=== PATIENT | male | born 1985 | race American Indian/Alaskan Native ===

== ENCOUNTER 2016-10-06 19:04 | Emergency (ER) | payer MEDICAID ==
[2016-10-06] MEDS ORDERED: ATIVAN ONE (20:10)
[2016-10-06] MEDS ORDERED: ATIVAN IM ONE (20:13)
--- NOTE | 2016-10-06 20:19 | Emergency Department Report ---
HPI - General Time Seen by Provider: 10/06/16 19:53 - HPI HPI: Room 10 The patient is a 31-year-old male presenting with a chief complaint of agitation. Patient has a history apparently schizophrenia addition to hydrocephalus requiring CAREER DEVELOPMENT COORDINATOR/TEACHER shunt. The mother is not present at the time but is en route to the ED. The patient states the patient was reported to have had increased agitation condition is normally quiet at baseline. Platelet the patient has been pacing and cursing. The patient went to [facility] and [place] 1 month ago for the same and medications were adjusted. Location: Mental state Duration: [see above] Quality: Agitation Severity: Moderate Modifying factors: [see above] Context: [see above] Mode of transportation: [not driving] ED Past Medical Hx - Past Medical History Hx Hypertension: Yes Hx Seizures: Yes Hx Psychiatric Treatment: Yes (Paranoid Schizophrenia) Additional medical history: Hydrocephaly - Surgical History Additional Surgical History: Brain Surgery X 5, CAREER DEVELOPMENT COORDINATOR/TEACHER shunt - Family History Family history: no significant - Social History Smoking Status: Never Smoker Substance Use Type: None - Medications Home Medications: Home Medications Medication Instructions Recorded Confirmed Last Taken Type Colace CAP 200 mg PO BID 08/15/16 08/15/16 Unknown History Cyanocobalamin 1,000 mcg IM Q30D 08/15/16 08/15/16 Unknown History Depakote ER 1,000 mg PO HS 08/15/16 08/15/16 Unknown History Metoprolol SUCCINATE ER TAB 25 mg PO BID 08/15/16 08/15/16 Unknown History Perphenazine 4 mg PO BID 08/15/16 08/15/16 Unknown History Phenytoin 100 mg PO BID 08/15/16 08/15/16 Unknown History Polyethylene Glycol 3350 17 gm PO DAILY 08/15/16 08/15/16 Unknown History QUEtiapine 600 mg PO HS 08/15/16 08/15/16 Unknown History clonazePAM 1 mg PO TID 08/15/16 08/15/16 Unknown History ED Review of Systems ROS: Stated complaint: MENTAL EVALUATION Other details as noted in HPI Comment: Unobtainable due to pts medical conditions Physical Exam - Physical Exam Vital Signs: Vital Signs 10/06/16 10/06/16 19:28 19:37 Temperature 98.4 F 98.2 F Pulse Rate 99 H 99 H Respiratory 20 20 Rate Blood Pressure 149/88 Blood Pressure 149/88 [Right] O2 Sat by Pulse 98 99 Oximetry Physical Exam: GENERAL: The patient is well-developed well-nourished male lying on stretcher with occasional outbursts and nonsensical statements HEENT: Normocephalic. Atraumatic. Strabismus. Patient has moist mucous membranes. NECK: Supple. Trachea midline CHEST/LUNGS: Clear to auscultation. There is no respiratory distress noted. HEART/CARDIOVASCULAR: Regular. There is no tachycardia. There is no gallop rub or murmur. ABDOMEN: Abdomen is soft, nontender. Patient has normal bowel sounds. There is no abdominal distention. SKIN: There is no rash. There is no edema. There is no diaphoresis. NEURO: The patient is awake, but does not appear oriented. The patient is not fully cooperative with exam and history. MUSCULOSKELETAL: There is no evidence of acute injury. ED Course Vital Signs 10/06/16 10/06/16 19:28 19:37 Temperature 98.4 F 98.2 F Pulse Rate 99 H 99 H Respiratory 20 20 Rate Blood Pressure 149/88 Blood Pressure 149/88 [Right] O2 Sat by Pulse 98 99 Oximetry ED Medical Decision Making - Lab Data Result diagrams: 10/06/16 20:12 10/06/16 20:12 Laboratory Tests 10/06/16 10/06/16 10/06/16 20:12 20:12 20:19 WBC 8.4 RBC 4.69 Hgb 13.1 Hct 38.9 MCV 83 L MCH 28 MCHC 34 RDW 14.8 Plt Count 266 Sodium 137 Potassium 3.9 Chloride 99.2 Carbon Dioxide 23 Anion Gap 19 BUN 9 Creatinine 0.7 L Estimated GFR > 60 BUN/Creatinine Ratio 12.85 Glucose 85 Calcium 8.9 TSH 1.630 Free T4 1.16 Phenytoin Valproic Acid 10/06/16 20:19 WBC RBC Hgb Hct MCV MCH MCHC RDW Plt Count Sodium Potassium Chloride Carbon Dioxide Anion Gap BUN Creatinine Estimated GFR BUN/Creatinine Ratio Glucose Calcium TSH Free T4 Phenytoin 1.3 L Valproic Acid < 2.8 L - Radiology Data Radiology results: report reviewed (CT head), image reviewed (CT head) CT head (read by radiologist)-no gross acute intracranial abnormality. Right frontal proximal shunt catheter is in place. Ventricle system is decompressed. Diffuse dural thickening related to chronic shunting. - Differential Diagnosis schizophrenia, CAREER DEVELOPMENT COORDINATOR/TEACHER shunt malfunction Critical care attestation.: If time is entered above; I have spent that time in minutes in the direct care of this critically ill patient, excluding procedure time. ED Disposition Clinical Impression: Schizophrenia Disposition: DC/TX PSY HOSP/PSY UNIT Is pt being admited?: No Does the pt Need Aspirin: No Condition: Fair Referrals: PRIMARY CARE,MD [Primary Care Provider] - 3-5 Days Time of Disposition: 22:35 (awaiting acceptance)
[2016-10-06 20:28] LABS: Hematocrit 38.9 % (35.5-45.6); Hemoglobin 13.1 gm/dl (11.8-15.2); Mean Corpuscular HGB Conc 34 % (32-34); Mean Corpuscular Hemoglobin 28 pg (28-32); Mean Corpuscular Volume 83 fl (84-94); Platelet Count 266 K/mm3 (140-440); Red Blood Count 4.69 M/mm3 (3.65-5.03); Red Cell Distribution Width 14.8 % (13.2-15.2); White Blood Count 8.4 K/mm3 (4.5-11.0)
[2016-10-06 20:50] LABS: BUN/Creatinine Ratio 12.85; Blood Urea Nitrogen 9 mg/dL (9-20); Calcium 8.9 mg/dL (8.4-10.2); Carbon Dioxide 23 mmol/L (22-30); Chloride 99.2 mmol/L (98-107); Glucose 85 mg/dL (75-100); Potassium 3.9 mmol/L (3.6-5.0); Sodium 137 mmol/L (137-145)
[2016-10-06 20:53] LABS: Anion Gap 19 mmol/L
[2016-10-06 20:53] LABS: Valproate < 2.8 ug/mL (50-100)
--- NOTE | 2016-10-06 21:13 | Cat Scan Report ---
FINAL REPORT EXAM: CT HEAD/BRAIN WO CON HISTORY: altered mental status COMPARISON: None available. TECHNIQUE: Contiguous axial images were obtained. FINDINGS: No acute intracranial hemorrhage or midline shift. There is a right frontal approach shunt catheter in place with the distal tip terminating at the superior margin right lateral ventricle anteriorly. Ventricular system is decompressed. There is diffuse thinning of the corpus callosum. Mild volume loss advanced for patient age. Diffuse dural thickening along the calvarium likely relating to chronic shunting. Basal cisterns are patent. Calcification within the midbrain measuring 9 x 5 millimeters. This is nonspecific. This could relate to sequelae of prior hemorrhage or inflammation. Cavernous malformation could have a similar appearance. Focal volume loss at the posterior superior margin right temporal lobe and inferior margin parietal lobe may relate to sequelae of prior ischemia. Otherwise, ferro-white differentiation maintained. Prominent perivascular space within the inferior basal ganglia. Diffuse hyperostosis of the calvarium. Under pneumatization of the mastoid air cells. Visualized paranasal sinuses are clear. Visualized orbits are grossly unremarkable. IMPRESSION: No gross acute intracranial abnormality. Right frontal approach shunt catheter is in place. Ventricular system is decompressed. Diffuse dural thickening related to chronic shunting. Volume loss advanced for patient age. Diffuse thinning of the corpus callosum which may be on a developmental basis. Focal volume loss the right temporal and parietal lobe may relate to sequelae of prior ischemia. Calcification midbrain measuring 9 x 5 millimeters which may relate to sequelae of prior hemorrhage or infection. Cavernous malformation could have a similar appearance.
[2016-10-07 04:46] LABS: Urine Drugs of Abuse Note Disclamer
[2016-10-07 04:53] LABS: Bilirubin,Urine NEG (Negative); Blood,Urine NEG (Negative); Ketones,Urine NEG (Negative); Leukocyte Esterase,Urine NEG (Negative); Mucus,Urine FEW /HPF; Nitrite,Urine NEG (Negative); Protein,Urine <15 mg/dL mg/dL (Negative); Urobilinogen,Urine < 2.0 mg/dL (<2.0)
[2016-10-07] MEDS ORDERED: VISTARIL PO PRN (13:55)
[2016-10-07] MEDS: KEPPRA PO SCH ×2 (14:40→22:23)
[2016-10-07] MEDS: LOPRESSOR PO SCH ×2 (14:40→22:23)
--- NOTE | 2016-10-07 22:21 | Emergency Department Report ---
Blank Doc - Documentation Documentation: Nursing notes and vital signs improved. Patient was tachycardic earlier today but heart rate has since improved without intervention. Patient remains calm and cooperative in ED. Awaiting placement.
[2016-10-08] MEDS ORDERED: NON-FORMULARY (Quetiapine Fumarate [Seroquel] 50 MG) PO SCH (10:00)
[2016-10-08] MEDS: KEPPRA PO SCH ×2 (10:16→22:25)
[2016-10-08] MEDS: COLACE PO SCH (10:16)
[2016-10-08] MEDS: LOPRESSOR PO SCH ×2 (10:16→22:25)
--- NOTE | 2016-10-08 16:57 | Emergency Department Report ---
Blank Doc - Documentation Documentation: Vital Signs - 24 hr 10/07/16 10/07/16 10/08/16 21:47 22:23 10:16 Temperature Pulse Rate 89 89 80 Respiratory 20 Rate Blood Pressure 123/89 107/71 Blood Pressure 123/89 [Right] O2 Sat by Pulse 98 Oximetry 10/08/16 10/08/16 10/08/16 10:20 10:22 12:12 Temperature 97.7 F 98.0 F Pulse Rate 80 80 Respiratory 18 18 18 Rate Blood Pressure Blood Pressure 107/71 102/61 [Right] O2 Sat by Pulse 99 99 100 Oximetry 10/08/16 13:29 Temperature Pulse Rate 101 H Respiratory 16 Rate Blood Pressure Blood Pressure 109/66 [Right] O2 Sat by Pulse 100 Oximetry VS reviewed. No events reported. Awaiting placement
[2016-10-09] MEDS: COLACE PO SCH (10:13)
[2016-10-09] MEDS: LOPRESSOR PO SCH ×2 (10:14→23:39)
[2016-10-09] MEDS: KEPPRA PO SCH ×2 (10:14→23:39)
--- NOTE | 2016-10-09 15:29 | Emergency Department Report ---
Blank Doc - Documentation Documentation: Vital signs reviewed. Patient has been resting quietly requiring no intervention. Patient continues to await placement.
[2016-10-10] MEDS: COLACE PO SCH (09:43)
[2016-10-10] MEDS: LOPRESSOR PO SCH ×2 (09:44→22:17)
[2016-10-10] MEDS: KEPPRA PO SCH ×2 (09:44→22:17)
--- NOTE | 2016-10-11 05:44 | Event Note ---
Date: 10/11/16 no recent events. vitals noted. awaits psychiatric placement Vital Signs 10/06/16 10/06/16 10/07/16 19:28 19:37 13:50 Temperature 98.4 F 98.2 F 98 F Pulse Rate 99 H 99 H 114 H Respiratory 20 20 16 Rate Blood Pressure 149/88 Blood Pressure 149/88 167/89 [Right] O2 Sat by Pulse 98 99 100 Oximetry 10/07/16 10/07/16 10/07/16 14:40 21:47 22:23 Temperature Pulse Rate 114 H 89 89 Respiratory 20 Rate Blood Pressure 167/89 123/89 Blood Pressure 123/89 [Right] O2 Sat by Pulse 98 Oximetry 10/08/16 10/08/16 10/08/16 10:16 10:20 10:22 Temperature 97.7 F Pulse Rate 80 80 Respiratory 18 18 Rate Blood Pressure 107/71 Blood Pressure 107/71 [Right] O2 Sat by Pulse 99 99 Oximetry 10/08/16 10/08/16 10/08/16 12:12 13:29 22:25 Temperature 98.0 F Pulse Rate 80 101 H 92 H Respiratory 18 16 Rate Blood Pressure 135/93 Blood Pressure 102/61 109/66 [Right] O2 Sat by Pulse 100 100 Oximetry 10/08/16 10/09/16 10/09/16 22:42 03:01 07:31 Temperature Pulse Rate 92 H 78 Respiratory 16 14 15 Rate Blood Pressure Blood Pressure 135/93 122/81 [Right] O2 Sat by Pulse 97 99 Oximetry 10/09/16 10/09/16 10/09/16 07:33 10:00 19:34 Temperature 98.1 F Pulse Rate 78 85 Respiratory 15 15 18 Rate Blood Pressure Blood Pressure 122/81 112/72 [Right] O2 Sat by Pulse 99 99 99 Oximetry 10/09/16 10/10/16 10/10/16 23:39 07:30 08:00 Temperature 98.3 F Pulse Rate 69 97 H Respiratory 18 Rate Blood Pressure 106/75 Blood Pressure 116/79 [Right] O2 Sat by Pulse 97 97 Oximetry 10/10/16 10/10/16 10/10/16 09:44 19:36 22:00 Temperature 98.1 F Pulse Rate 97 H 85 Respiratory 20 18 Rate Blood Pressure 116/79 Blood Pressure 130/75 [Right] O2 Sat by Pulse 99 Oximetry 10/10/16 22:17 Temperature Pulse Rate 85 Respiratory Rate Blood Pressure 130/75 Blood Pressure [Right] O2 Sat by Pulse Oximetry
[2016-10-11] MEDS: LOPRESSOR PO SCH ×2 (10:58→22:04)
[2016-10-11] MEDS: COLACE PO SCH (10:58)
[2016-10-11] MEDS: KEPPRA PO SCH ×2 (10:58→22:04)
--- NOTE | 2016-10-12 05:55 | Event Note ---
Date: 10/12/16 Vital signs reviewed. Patient awaits psychiatric placement. Vital Signs 10/06/16 10/06/16 10/07/16 19:27 19:37 13:50 Temperature 98.4 F 98.2 F 98 F Pulse Rate 99 H 99 H 114 H Respiratory 20 20 16 Rate Blood Pressure 149/88 Blood Pressure 149/88 167/89 [Right] O2 Sat by Pulse 98 99 100 Oximetry 10/07/16 10/07/16 10/07/16 14:40 21:47 22:23 Temperature Pulse Rate 114 H 89 89 Respiratory 20 Rate Blood Pressure 167/89 123/89 Blood Pressure 123/89 [Right] O2 Sat by Pulse 98 Oximetry 10/08/16 10/08/16 10/08/16 10:16 10:20 10:22 Temperature 97.7 F Pulse Rate 80 80 Respiratory 18 18 Rate Blood Pressure 107/71 Blood Pressure 107/71 [Right] O2 Sat by Pulse 99 99 Oximetry 10/08/16 10/08/16 10/08/16 12:12 13:29 22:25 Temperature 98.0 F Pulse Rate 80 101 H 92 H Respiratory 18 16 Rate Blood Pressure 135/93 Blood Pressure 102/61 109/66 [Right] O2 Sat by Pulse 100 100 Oximetry 10/08/16 10/09/16 10/09/16 22:42 03:01 07:31 Temperature Pulse Rate 92 H 78 Respiratory 16 14 15 Rate Blood Pressure Blood Pressure 135/93 122/81 [Right] O2 Sat by Pulse 97 99 Oximetry 10/09/16 10/09/16 10/09/16 07:33 10:00 19:34 Temperature 98.1 F Pulse Rate 78 85 Respiratory 15 15 18 Rate Blood Pressure Blood Pressure 122/81 112/72 [Right] O2 Sat by Pulse 99 99 99 Oximetry 10/09/16 10/10/16 10/10/16 23:39 07:30 08:00 Temperature 98.3 F Pulse Rate 69 97 H Respiratory 18 Rate Blood Pressure 106/75 Blood Pressure 116/79 [Right] O2 Sat by Pulse 97 97 Oximetry 10/10/16 10/10/16 10/10/16 09:44 19:36 22:00 Temperature 98.1 F Pulse Rate 97 H 85 Respiratory 20 18 Rate Blood Pressure 116/79 Blood Pressure 130/75 [Right] O2 Sat by Pulse 99 Oximetry 10/10/16 10/11/16 10/11/16 22:17 12:16 18:48 Temperature 97.8 F Pulse Rate 85 88 Respiratory 18 16 Rate Blood Pressure 130/75 Blood Pressure 130/74 [Right] O2 Sat by Pulse 10 L Oximetry 10/11/16 10/11/16 20:02 22:04 Temperature 98.6 F Pulse Rate 88 88 Respiratory 16 Rate Blood Pressure 142/89 Blood Pressure 142/89 [Right] O2 Sat by Pulse 96 Oximetry
[2016-10-12] MEDS: COLACE PO SCH (10:25)
[2016-10-12] MEDS: KEPPRA PO SCH ×2 (10:25→23:17)
[2016-10-12] MEDS: LOPRESSOR PO SCH ×2 (10:53→23:15)
[2016-10-13] MEDS: KEPPRA PO SCH ×2 (09:49→22:27)
[2016-10-13] MEDS: LOPRESSOR PO SCH ×2 (09:49→22:27)
[2016-10-13] MEDS: COLACE PO SCH (09:49)
[2016-10-14] MEDS: LOPRESSOR PO SCH ×2 (10:05→21:32)
[2016-10-14] MEDS: KEPPRA PO SCH ×2 (10:05→21:32)
[2016-10-14] MEDS: COLACE PO SCH (10:05)
[2016-10-15] MEDS ORDERED: VISTARIL ONE (02:13)
[2016-10-15] MEDS ORDERED: NACL 0.9% 1000 ML 2,000 ML ONE (07:47)
[2016-10-15] MEDS: KEPPRA PO SCH ×2 (10:07→22:00)
[2016-10-15] MEDS: COLACE PO SCH (10:07)
[2016-10-15] MEDS: LOPRESSOR PO SCH ×2 (10:07→22:00)
--- NOTE | 2016-10-15 14:47 | Event Note ---
Date: 10/15/16 Vital signs reviewed. Await psychiatric placement. Vital Signs 10/06/16 10/06/16 10/07/16 19:27 19:37 13:50 Temperature 98.4 F 98.2 F 98 F Pulse Rate 99 H 99 H 114 H Respiratory 20 20 16 Rate Blood Pressure 149/88 Blood Pressure 149/88 167/89 [Right] O2 Sat by Pulse 98 99 100 Oximetry 10/07/16 10/07/16 10/07/16 14:40 21:47 22:23 Temperature Pulse Rate 114 H 89 89 Respiratory 20 Rate Blood Pressure 167/89 123/89 Blood Pressure 123/89 [Right] O2 Sat by Pulse 98 Oximetry 10/08/16 10/08/16 10/08/16 10:16 10:20 10:22 Temperature 97.7 F Pulse Rate 80 80 Respiratory 18 18 Rate Blood Pressure 107/71 Blood Pressure 107/71 [Right] O2 Sat by Pulse 99 99 Oximetry 10/08/16 10/08/16 10/08/16 12:12 13:29 22:25 Temperature 98.0 F Pulse Rate 80 101 H 92 H Respiratory 18 16 Rate Blood Pressure 135/93 Blood Pressure 102/61 109/66 [Right] O2 Sat by Pulse 100 100 Oximetry 10/08/16 10/09/16 10/09/16 22:42 03:01 07:31 Temperature Pulse Rate 92 H 78 Respiratory 16 14 15 Rate Blood Pressure Blood Pressure 135/93 122/81 [Right] O2 Sat by Pulse 97 99 Oximetry 10/09/16 10/09/16 10/09/16 07:33 10:00 19:34 Temperature 98.1 F Pulse Rate 78 85 Respiratory 15 15 18 Rate Blood Pressure Blood Pressure 122/81 112/72 [Right] O2 Sat by Pulse 99 99 99 Oximetry 10/09/16 10/10/16 10/10/16 23:39 07:30 08:00 Temperature 98.3 F Pulse Rate 69 97 H Respiratory 18 Rate Blood Pressure 106/75 Blood Pressure 116/79 [Right] O2 Sat by Pulse 97 97 Oximetry 10/10/16 10/10/16 10/10/16 09:44 19:36 22:00 Temperature 98.1 F Pulse Rate 97 H 85 Respiratory 20 18 Rate Blood Pressure 116/79 Blood Pressure 130/75 [Right] O2 Sat by Pulse 99 Oximetry 10/10/16 10/11/16 10/11/16:17 12:16 18:48 Temperature 97.8 F Pulse Rate 85 88 Respiratory 18 16 Rate Blood Pressure 130/75 Blood Pressure 130/74 [Right] O2 Sat by Pulse 10 L Oximetry 10/11/16 10/11/16 10/12/16 20:02 22:04 10:53 Temperature 98.6 F Pulse Rate 88 88 85 Respiratory 16 Rate Blood Pressure 142/89 122/72 Blood Pressure 142/89 [Right] O2 Sat by Pulse 96 Oximetry 10/12/16 10/12/16 10/13/16 10:56 22:00 08:01 Temperature 98.5 F 98.0 F 94 F L Pulse Rate 85 86 98 H Respiratory 16 18 24 Rate Blood Pressure Blood Pressure 122/72 132/81 113/70 [Right] O2 Sat by Pulse 100 98 95 Oximetry 10/13/16 10/13/16 10/13/16 08:20 09:49 22:00 Temperature 97.8 F Pulse Rate 98 H 96 H Respiratory 24 18 Rate Blood Pressure 113/75 Blood Pressure 118/80 [Right] O2 Sat by Pulse 98 97 Oximetry 10/14/16 10/14/16 10/14/16 08:58 10:00 10:05 Temperature 97.7 F Pulse Rate 136 H 136 H Respiratory 18 20 Rate Blood Pressure 120/90 Blood Pressure 120/90 [Right] O2 Sat by Pulse 97 97 Oximetry 10/14/16 10/14/16 10/15/16 11:46 22:00 08:00 Temperature 98.0 F Pulse Rate 95 H 98 H Respiratory 16 18 18 Rate Blood Pressure Blood Pressure 116/72 [Right] O2 Sat by Pulse 99 98 98 Oximetry 10/15/16 10:07 Temperature 97.4 F L Pulse Rate 97 H Respiratory 18 Rate Blood Pressure 142/80 Blood Pressure 142/80 [Right] O2 Sat by Pulse 100 Oximetry
[2016-10-16] MEDS: LOPRESSOR PO SCH ×2 (10:54→22:00)
[2016-10-16] MEDS: COLACE PO SCH (10:54)
[2016-10-16] MEDS: KEPPRA PO SCH ×2 (10:54→22:00)
--- NOTE | 2016-10-17 01:19 | Event Note ---
Date: 10/17/16 no Recent events. Vital signs reviewed and appreciated. Patient has been in the emergency department for over 240 hours. At this point in time, it does not appear that there is any immediate medical contraindication to psychiatric admission/evaluation/placement. Vital Signs 10/06/16 10/06/16 10/07/16 19:27 19:37 13:50 Temperature 98.4 F 98.2 F 98 F Pulse Rate 99 H 99 H 114 H Respiratory 20 20 16 Rate Blood Pressure 149/88 Blood Pressure 149/88 167/89 [Right] O2 Sat by Pulse 98 99 100 Oximetry 10/07/16 10/07/16 10/07/16 14:40 21:47 22:23 Temperature Pulse Rate 114 H 89 89 Respiratory 20 Rate Blood Pressure 167/89 123/89 Blood Pressure 123/89 [Right] O2 Sat by Pulse 98 Oximetry 10/08/16 10/08/16 10/08/16 10:16 10:20 10:22 Temperature 97.7 F Pulse Rate 80 80 Respiratory 18 18 Rate Blood Pressure 107/71 Blood Pressure 107/71 [Right] O2 Sat by Pulse 99 99 Oximetry 10/08/16 10/08/16 10/08/16 12:12 13:29 22:25 Temperature 98.0 F Pulse Rate 80 101 H 92 H Respiratory 18 16 Rate Blood Pressure 135/93 Blood Pressure 102/61 109/66 [Right] O2 Sat by Pulse 100 100 Oximetry 10/08/16 10/09/16 10/09/16 22:42 03:01 07:31 Temperature Pulse Rate 92 H 78 Respiratory 16 14 15 Rate Blood Pressure Blood Pressure 135/93 122/81 [Right] O2 Sat by Pulse 97 99 Oximetry 10/09/16 10/09/16 10/09/16 07:33 10:00 19:34 Temperature 98.1 F Pulse Rate 78 85 Respiratory 15 15 18 Rate Blood Pressure Blood Pressure 122/81 112/72 [Right] O2 Sat by Pulse 99 99 99 Oximetry 10/09/16 10/10/16 10/10/16 23:39 07:30 08:00 Temperature 98.3 F Pulse Rate 69 97 H Respiratory 18 Rate Blood Pressure 106/75 Blood Pressure 116/79 [Right] O2 Sat by Pulse 97 97 Oximetry 10/10/16 10/10/16 10/10/16 09:44 19:36 22:00 Temperature 98.1 F Pulse Rate 97 H 85 Respiratory 20 18 Rate Blood Pressure 116/79 Blood Pressure 130/75 [Right] O2 Sat by Pulse 99 Oximetry 10/10/16 10/11/16 10/11/16 22:17 12:16 18:48 Temperature 97.8 F Pulse Rate 85 88 Respiratory 18 16 Rate Blood Pressure 130/75 Blood Pressure 130/74 [Right] O2 Sat by Pulse 10 L Oximetry 10/11/16 10/11/16 10/12/16 20:02 22:04 10:53 Temperature 98.6 F Pulse Rate 88 88 85 Respiratory 16 Rate Blood Pressure 142/89 122/72 Blood Pressure 142/89 [Right] O2 Sat by Pulse 96 Oximetry 10/12/16 10/12/16 10/13/16 10:56 22:00 08:01 Temperature 98.5 F 98.0 F 94 F L Pulse Rate 85 86 98 H Respiratory 16 18 24 Rate Blood Pressure Blood Pressure 122/72 132/81 113/70 [Right] O2 Sat by Pulse 100 98 95 Oximetry 10/13/16 10/13/16 10/13/16 08:20 09:49 22:00 Temperature 97.8 F Pulse Rate 98 H 96 H Respiratory 24 18 Rate Blood Pressure 113/75 Blood Pressure 118/80 [Right] O2 Sat by Pulse 98 97 Oximetry 10/14/16 10/14/16 10/14/16 08:58 10:00 10:05 Temperature 97.7 F Pulse Rate 136 H 136 H Respiratory 18 20 Rate Blood Pressure 120/90 Blood Pressure 120/90 [Right] O2 Sat by Pulse 97 97 Oximetry 10/14/16 10/14/16 10/15/16 11:46 22:00 08:00 Temperature 98.0 F Pulse Rate 95 H 98 H Respiratory 16 18 18 Rate Blood Pressure Blood Pressure 116/72 [Right] O2 Sat by Pulse 99 98 98 Oximetry 10/15/16 10/15/16 10/15/16 10:07 19:36 22:00 Temperature 97.4 F L Pulse Rate 97 H 85 Respiratory 18 20 Rate Blood Pressure 142/80 120/58 Blood Pressure 142/80 [Right] O2 Sat by Pulse 100 Oximetry 10/15/16 10/16/16 10/16/16 23:26 04:25 09:00 Temperature 97.4 F L 98.3 F Pulse Rate 97 H 75 88 Respiratory 18 18 16 Rate Blood Pressure Blood Pressure 120/58 103/59 111/72 [Right] O2 Sat by Pulse 99 98 98 Oximetry 10/16/16 10/16/16 10/16/16 09:02 10:54 21:00 Temperature 98 F Pulse Rate 88 83 Respiratory 16 18 Rate Blood Pressure 111/72 Blood Pressure 106/37 [Right] O2 Sat by Pulse 97 Oximetry 10/16/16 22:00 Temperature Pulse Rate 83 Respiratory Rate Blood Pressure 106/37 Blood Pressure [Right] O2 Sat by Pulse Oximetry
[2016-10-17] MEDS: KEPPRA PO SCH (09:41)
[2016-10-17] MEDS: COLACE PO SCH (09:41)
[2016-10-17] MEDS: LOPRESSOR PO SCH (09:41)
[2016-10-17 10:55] VITALS: BP 117/81
== END 2016-10-17 17:22 ==
LOC: ED 19:04 → EEVIPCON 19:04 → ED 10-17 17:22
DX: F20.9 Schizophrenia, unspecified (principal); I10 Essential (primary) hypertension
CPT/HCPCS: 36415; 70450; 80048; 80164; 80185; 81001; 84439; 84443; 85027; 96372; 99285; G0479; J2060; J7030; 80301; Q0177

== ENCOUNTER 2017-07-24 07:10 | Emergency (ER) | payer MEDICAID ==
[2017-07-24 08:37] LABS: Basophils % (Auto) 0.4 % (0.0-1.8); Eosinophils % (Auto) 1.9 % (0.0-4.3); Hematocrit 38.4 % (35.5-45.6); Hemoglobin 12.8 gm/dl (11.8-15.2); Mean Corpuscular HGB Conc 33 % (32-34); Mean Corpuscular Hemoglobin 28 pg (28-32); Mean Corpuscular Volume 83 fl (84-94); Platelet Count 230 K/mm3 (140-440); Red Blood Count 4.62 M/mm3 (3.65-5.03); Red Cell Distribution Width 15.5 % (13.2-15.2); White Blood Count 4.4 K/mm3 (4.5-11.0)
[2017-07-24 09:09] LABS: Anion Gap 20 mmol/L; BUN/Creatinine Ratio 14; Blood Urea Nitrogen 11 mg/dL (9-20); Calcium 9.2 mg/dL (8.4-10.2); Carbon Dioxide 22 mmol/L (22-30); Chloride 101.4 mmol/L (98-107); Glucose 96 mg/dL (75-100); Potassium 4.1 mmol/L (3.6-5.0); Sodium 139 mmol/L (137-145)
--- NOTE | 2017-07-24 10:13 | Emergency Department Report ---
ED Psych HPI - General Chief Complaint: Psych Stated Complaint: MH/PSYCH Time Seen by Provider: 07/24/17 09:52 Source: EMS Mode of arrival: Stretcher - History of Present Illness Initial Comments: Patient is a 32-year-old male who presents the emergency department with disorganized. He was brought to emergency department by police after being extremely agitated and walking around outside and threatening. Here he is very difficult to understand and appears disorganized. MD Complaint: altered mental status -: Sudden Associated Psychiatric Symptoms: delusions History of same: Yes - Related Data Home Medications Medication Instructions Recorded Confirmed Last Taken Iloperidone [Fanapt] 8 mg PO BID 07/24/17 07/24/17 Unknown Metoprolol [Lopressor TAB] 25 mg PO BID 07/24/17 07/24/17 Unknown Mirtazapine [Remeron] 15 mg PO QHS 07/24/17 07/24/17 07/23/17 22:00 15 mg clonazePAM 0.5 mg PO BID 07/24/17 07/24/17 Unknown diphenhydrAMINE [Benadryl CAP] 50 mg PO QHS 07/24/17 07/24/17 Unknown levETIRAcetam [Keppra] 1,000 mg PO BID 07/24/17 07/24/17 Unknown Allergies Allergy/AdvReac Type Severity Reaction Status Date / Time haloperidol [From Haldol] Allergy Hives Verified 08/15/16 06:39 haloperidol lactate Allergy Hives Verified 08/15/16 06:39 [From Haldol] metoclopramide HCl Allergy Hives Verified 08/15/16 06:39 [From Reglan] phenobarbital Allergy Dizziness Verified 08/15/16 06:40 aripiprazole [From Abilify] AdvReac Unknown Verified 08/15/16 06:43 ziprasidone HCl [From Geodon] AdvReac Unknown Verified 08/15/16 06:41 ziprasidone mesylate AdvReac Unknown Verified 08/15/16 06:41 [From Geodon] ED Review of Systems ROS: Stated complaint: MH/PSYCH Other details as noted in HPI Comment: Unobtainable due to pts medical conditions ED Past Medical Hx - Past Medical History Previous Medical History?: Yes Hx Hypertension: Yes Hx Seizures: Yes Hx Psychiatric Treatment: Yes (Paranoid Schizophrenia) Additional medical history: Hydrocephaly - Surgical History Past Surgical History?: Yes Additional Surgical History: Brain Surgery X 5, INFORMATICS NURSE shunt - Social History Smoking Status: Current Some Day Smoker Substance Use Type: None - Medications Home Medications: Home Medications Medication Instructions Recorded Confirmed Last Taken Type Iloperidone [Fanapt] 8 mg PO BID 07/24/17 07/24/17 Unknown History Metoprolol [Lopressor TAB] 25 mg PO BID 07/24/17 07/24/17 Unknown History Mirtazapine [Remeron] 15 mg PO QHS 07/24/17 07/24/17 07/23/17 22:00 History 15 mg clonazePAM 0.5 mg PO BID 07/24/17 07/24/17 Unknown History diphenhydrAMINE [Benadryl CAP] 50 mg PO QHS 07/24/17 07/24/17 Unknown History levETIRAcetam [Keppra] 1,000 mg PO BID 07/24/17 07/24/17 Unknown History ED Physical Exam - General Limitations: Altered Mental Status General appearance: alert, in no apparent distress - Head Head exam: Present: atraumatic, normocephalic - Eye Eye exam: Present: normal appearance. Absent: scleral icterus, conjunctival injection - ENT ENT exam: Present: mucous membranes moist - Neck Neck exam: Present: normal inspection - Respiratory Respiratory exam: Present: normal lung sounds bilaterally. Absent: respiratory distress, wheezes - Cardiovascular Cardiovascular Exam: Present: regular rate, normal rhythm, normal heart sounds. Absent: systolic murmur, diastolic murmur, rubs, gallop - GI/Abdominal GI/Abdominal exam: Present: soft, normal bowel sounds - Rectal Rectal exam: Present: deferred - Extremities Exam Extremities exam: Present: normal inspection - Back Exam Back exam: Present: normal inspection - Neurological Exam Neurological exam: Present: alert, oriented X3 - Psychiatric Psychiatric exam: Present: normal affect, normal mood - Skin Skin exam: Present: warm, dry, intact, normal color. Absent: rash ED Course Vital Signs 07/24/17 07:26 Temperature 97.9 F Pulse Rate 88 Respiratory 20 Rate Blood Pressure 143/81 [Right] O2 Sat by Pulse 100 Oximetry ED Medical Decision Making - Lab Data Result diagrams: 07/24/17 08:19 07/24/17 08:19 Laboratory Results - last 24 hr 07/24/17 07/24/17 07/24/17 08:19 08:19 08:19 WBC 4.4 L RBC 4.62 Hgb 12.8 Hct 38.4 MCV 83 L MCH 28 MCHC 33 RDW 15.5 H Plt Count 230 Lymph % (Auto) 41.3 H [place] % (Auto) 7.0 Eos % (Auto) 1.9 Baso % (Auto) 0.4 Lymph # 1.8 [place] # 0.3 Eos # 0.1 Baso # 0.0 Seg Neutrophils % 49.4 Seg Neutrophils # 2.2 Sodium 139 Potassium 4.1 Chloride 101.4 Carbon Dioxide 22 Anion Gap 20 BUN 11 Creatinine 0.8 Estimated GFR > 60 BUN/Creatinine Ratio 14 Glucose 96 Calcium 9.2 Urine Color Urine Turbidity Urine pH Ur Specific [place] Urine Protein Urine Glucose (UA) Urine Ketones Urine Blood Urine Nitrite Urine Bilirubin Urine Urobilinogen Ur Leukocyte Esterase Urine WBC (Auto) Urine RBC (Auto) U Epithel Cells (Auto) Urine Opiates Screen Urine Methadone Screen Ur Barbiturates Screen Ur Phencyclidine Scrn Ur Amphetamines Screen U Benzodiazepines Scrn Urine Cocaine Screen U Marijuana (THC) Screen Drugs of Abuse Note Plasma/Serum Alcohol < 0.01 07/24/17 07/24/17 10:04 10:04 WBC RBC Hgb Hct MCV MCH MCHC RDW Plt Count Lymph % (Auto) [place] % (Auto) Eos % (Auto) Baso % (Auto) Lymph # [place] # Eos # Baso # Seg Neutrophils % Seg Neutrophils # Sodium Potassium Chloride Carbon Dioxide Anion Gap BUN Creatinine Estimated GFR BUN/Creatinine Ratio Glucose Calcium Urine Color Yellow Urine Turbidity Clear Urine pH 7.0 Ur Specific [place] 1.013 Urine Protein <15 mg/dl Urine Glucose (UA) Neg Urine Ketones Neg Urine Blood Neg Urine Nitrite Neg Urine Bilirubin Neg Urine Urobilinogen < 2.0 Ur Leukocyte Esterase Mod Urine WBC (Auto) 5.0 Urine RBC (Auto) 1.0 U Epithel Cells (Auto) 1.0 Urine Opiates Screen Presumptive negative Urine Methadone Screen Presumptive negative Ur Barbiturates Screen Presumptive negative Ur Phencyclidine Scrn Presumptive negative Ur Amphetamines Screen Presumptive negative U Benzodiazepines Scrn Presumptive negative Urine Cocaine Screen Presumptive negative U Marijuana (THC) Screen Presumptive positive Drugs of Abuse Note Disclamer Plasma/Serum Alcohol - Medical Decision Making 32-year-old male here with complaint of psychosis and agitation. Patient was outside threatening family and very agitated. According to mother was some adjustment to psych meds recently. Head CT negative. Plan to psychiatric: The patient and have him evaluated by mental health services. Portions of this chart were dictated with dictation software. There may be dictation errors contained within this note. Critical care attestation.: If time is entered above; I have spent that time in minutes in the direct care of this critically ill patient, excluding procedure time. ED Disposition Clinical Impression: Psychosis Disposition: DC/TX-65 PSY HOSP/PSY UNIT Is pt being admited?: No Condition: Stable Referrals: PRIMARY CARE, [Primary Care Provider] - 3-5 Days
--- NOTE | 2017-07-24 10:54 | Cat Scan Report ---
CT scan of head without IV contrast: Compared to 10/06/16. History: Altered mental status. Findings: Ventricles are midline in location. Decompressed ventricles with stable shunt. Diffuse thinning of corpus callosum without significant interval change. No evidence of acute ischemia or hemorrhage. Bilateral diffuse dural thickening related to chronic shunting. No interval change. Calcification midbrain without interval change. Impression: No interval change. No acute findings.
[2017-07-24 11:57] LABS: Urine Drugs of Abuse Note Disclamer
[2017-07-24 12:10] LABS: Bilirubin,Urine NEG (Negative); Blood,Urine NEG (Negative); Ketones,Urine NEG (Negative); Leukocyte Esterase,Urine MOD (Negative); Nitrite,Urine NEG (Negative); Protein,Urine <15 mg/dL mg/dL (Negative); Urobilinogen,Urine < 2.0 mg/dL (<2.0)
--- NOTE | 2017-07-24 13:16 | Progress Note ---
Subjective - Reason for Consult Reason for consult: disorganized Mental Status Exam - Vital signs Last Vital Signs Temp 97.9 F 07/24/17 07:26 Pulse 88 07/24/17 07:26 Resp 20 07/24/17 07:26 BP 143/81 07/24/17 07:26 Pulse Ox 100 07/24/17 07:26 Assessment and Plan I try to evaluate this patient and patient was not cooperative. On observation he was engaging in some bizarre behaviors at the bedside. Patient refused to be interviewed. He maintained that his name was something other than Wesley Ramirez. General Appearance: In hospital gown, malodorous Sensorium/Consciousness: alert and responding to external stimuli; clear Orientation: Unable to obtain Eye Contact: Fair Attitude / Behavior: guarded, uncooperative Psychomotor & Musculoskeletal Activity: No abnormalities noted Mood: Unable to obtain Affect: constricted, limited range Speech / Language: fluent, with normal rate/rhythm/tone, but nonsensical Thought Processes: disorganized, perseverative Thought Content: Unable to obtain Perception: +AH Insight: limited Judgement: limitied Capacity for ADLs: independent Plan: Nursing to reconcile home medications Obtain collateral information Re-assess when he is more cooperative Maintain him on 1013 and refer for inpatient psychiatric level of care
[2017-07-24] MEDS: KEPPRA PO SCH (21:50)
[2017-07-25] MEDS: KEPPRA PO SCH ×2 (10:15→21:30)
[2017-07-25] MEDS: BENADRYL PO PRN (21:32)
--- NOTE | 2017-07-25 21:44 | Progress Note ---
Subjective - Reason for Consult Reason for consult: disorganized Mental Status Exam - Vital signs Last Vital Signs Temp 98.1 F 07/25/17 10:00 Pulse 96 H 07/25/17 10:00 Resp 18 07/25/17 11:00 BP 106/63 07/25/17 10:00 Pulse Ox 97 07/25/17 11:00 Assessment and Plan Remains disorganized. Adherent to Keppra. Had to be placed in the seclusion room due to agitation. On examination, he was not agitated, but clearly disorganized and non-sensical. Likely MRDD with comorbid Bipolar Disorder. General Appearance: In hospital gown, malodorous Sensorium/Consciousness: alert and responding to external stimuli; clear Orientation: Unable to obtain Eye Contact: Fair Attitude / Behavior: guarded, uncooperative Psychomotor & Musculoskeletal Activity: No abnormalities noted Mood: Unable to obtain Affect: constricted, limited range Speech / Language: fluent, with normal rate/rhythm/tone, but nonsensical Thought Processes: disorganized, perseverative Thought Content: Unable to obtain Perception: +AH Insight: limited Judgement: limitied Capacity for ADLs: independent Assessment: Development Delay Bipolar Disorder Plan: Continue [facility] Nursing to reconcile home medications that are used to treat Bipolar Disorder Obtain collateral information Maintain him on 1013 and refer for inpatient psychiatric level of care
[2017-07-25] MEDS ORDERED: BENADRYL PO ONE (21:57)
[2017-07-26] MEDS: KEPPRA PO SCH ×2 (11:26→22:01)
--- NOTE | 2017-07-26 15:04 | Progress Note ---
Subjective - Reason for Consult Reason for consult: disorganized Mental Status Exam - Vital signs Last Vital Signs Temp 98.2 F 07/26/17 10:32 Pulse 88 07/26/17 10:32 Resp 16 07/26/17 10:32 BP 110/88 07/26/17 10:32 Pulse Ox 100 07/26/17 10:32 Assessment and Plan Remains disorganized. Adherent to Keppra. Had to be placed in the seclusion room due to agitation. On examination, he was sedated. General Appearance: In hospital gown, malodorous Sensorium/Consciousness: alert and responding to external stimuli; clear Orientation: Unable to obtain Eye Contact: Fair Attitude / Behavior: guarded, uncooperative Psychomotor & Musculoskeletal Activity: No abnormalities noted Mood: Unable to obtain Affect: constricted, limited range Speech / Language: fluent, with normal rate/rhythm/tone, but nonsensical Thought Processes: disorganized, perseverative Thought Content: Unable to obtain Perception: +AH Insight: limited Judgement: limitied Capacity for ADLs: independent Assessment: Development Delay Bipolar Disorder Plan: Continue Keppra Start Risperidone 1 mg po qhs Start Remeron 15 mg po qhs Obtain collateral information Maintain him on 1012 and refer for inpatient psychiatric level of care if possible Per [place] [facility], this may be the patient's baseline level of functioning. They also reported that a neurology referral has been made my the ACT psychiatrist but one is pending ER physician to evaluate if there is a need for a neuro consult acute while the patient is hospitalized in the ER
[2017-07-26] MEDS: RisperDAL PO SCH (20:01)
[2017-07-26] MEDS: REMERON PO SCH (22:01)
[2017-07-27] MEDS: KEPPRA PO SCH ×2 (10:43→21:48)
--- NOTE | 2017-07-27 13:40 | Progress Note ---
Subjective - Reason for Consult Reason for consult: disorganized/AH Mental Status Exam - Vital signs Last Vital Signs Temp 98.8 F 07/26/17 22:00 Pulse 84 07/26/17 22:00 Resp 16 07/26/17 22:00 BP 125/71 07/26/17 22:00 Pulse Ox 100 07/26/17 22:00 Assessment and Plan Remains disorganized, but no aggression noted. Adherent to Keppra/Risperidone/ Remeron. Remains in seclusion room without incident. Awaiting transfer, currently denied at the [facility]. General Appearance: In hospital gown, malodorous Sensorium/Consciousness: alert and responding to external stimuli; clear Orientation: Unable to obtain Eye Contact: Fair Attitude / Behavior: guarded, uncooperative Psychomotor & Musculoskeletal Activity: No abnormalities noted Mood: Unable to obtain Affect: constricted, limited range Speech / Language: fluent, with normal rate/rhythm/tone, but nonsensical Thought Processes: disorganized, perseverative Thought Content: Unable to obtain Perception: +AH Insight: limited Judgement: limitied Capacity for ADLs: independent Assessment: Development Delay Bipolar Disorder Plan: Continue Keppra, Risperidone 1 mg po qhs, Remeron 15 mg po qhs Obtain collateral information from family/[place] [facility] Maintain him on 1012 and refer for inpatient psychiatric level of care if possible Per [place] [facility] team, this may be the patient's baseline level of functioning. They also reported that a neurology referral has been made my the ACT psychiatrist but one is pending No Neuro consult requested to date
[2017-07-27] MEDS: RisperDAL PO SCH (21:48)
[2017-07-27] MEDS: REMERON PO SCH (21:48)
[2017-07-27] MEDS: BENADRYL PO PRN (21:50)
[2017-07-28] MEDS: KEPPRA PO SCH (10:29)
[2017-07-28] MEDS ORDERED: RisperDAL PO ONE (17:34)
[2017-07-28] MEDS ORDERED: RisperDAL ONE (17:38)
--- NOTE | 2017-07-28 19:38 | Progress Note ---
Subjective - Reason for Consult Consult date: 07/28/17 Reason for consult: psychiatric follow up Mental Status Exam - Vital signs Last Vital Signs Temp 98.6 F 07/28/17 07:50 Pulse 77 07/28/17 07:50 Resp 18 07/28/17 08:28 BP 110/68 07/28/17 07:50 Pulse Ox 99 07/28/17 08:28 Assessment and Plan Remains disorganized. Staff report no aggressive behaviors. Adherent to Keppra /Risperidone/Remeron. Remains in seclusion room without incident. Awaiting transfer. General Appearance: In hospital gown, malodorous Sensorium/Consciousness: alert and responding to external stimuli; clear Orientation: Unable to obtain Eye Contact: Fair Attitude / Behavior: guarded, uncooperative Psychomotor & Musculoskeletal Activity: No abnormalities noted Mood: Unable to obtain Affect: constricted, limited range Speech / Language: nonsensical Thought Processes: disorganized, perseverative Thought Content: Unable to obtain Perception: +AH Insight: limited Judgment: limited Capacity for ADLs: independent Assessment: Development Delay Bipolar Disorder Plan: unchanged Continue Keppra, Risperidone 1 mg po qhs, Remeron 15 mg po qhs Obtain collateral information from family/[place] [facility] Maintain him on 1013 and refer for inpatient psychiatric level of care if possible Per [place] [facility] team, this may be the patient's baseline level of functioning. They also reported that a neurology referral has been made by the [facility] psychiatrist but one is pending No Neuro consult requested to date
[2017-07-28] MEDS: REMERON PO SCH (21:44)
[2017-07-28] MEDS: BENADRYL PO PRN (21:45)
[2017-07-28] MEDS: RisperDAL PO SCH (21:45)
--- NOTE | 2017-07-29 10:50 | Progress Note ---
Subjective - Reason for Consult Consult date: 07/29/17 Reason for consult: Psychiatry Follow-up - Chief Complaint Chief complaint: "Yes" Patient is a 32-year-old male who presents the emergency department with disorganized. Today patient remains disorganized. Staff report no aggressive behavior. Patient observed eating his breakfast during the interview. No indications of side effects of his medications. Patient's Keppra was D/C'd. No gestures of SI/HI's. Mental Status Exam - Vital signs Last Vital Signs Temp 98.4 F 07/29/17 08:29 Pulse 68 07/29/17 08:29 Resp 20 07/29/17 08:29 BP 115/71 07/29/17 08:29 Pulse Ox 100 07/29/17 08:29 - Exam Narrative exam: MSE: Appearance: calm Behavior: regular eye contact Speech: regular rate and tone Mood: unable to assess Affect: flat Thought Process: unable to assess Thought Content: disorganized Motor Activity: ambulatory Cognition: A/O x1 Insight: unable to assess Judgment: unable to assess Assessment and Plan Impression: Development Delay/Bipolar Disorder. Today patient remains disorganized, possibly his baseline. Recommendation/Plan: Continue 1013 with possible placement to inpatient psy services. Continue Risperidone 1 mg PO HS and Remeron 15 mg PO HS. Keppra was D/ C'd. Per [place] [facility], this may be the patient's baseline level of functioning.
[2017-07-29] MEDS: RisperDAL PO SCH (22:02)
[2017-07-29] MEDS: REMERON PO SCH (22:02)
[2017-07-29] MEDS: BENADRYL PO PRN (22:02)
[2017-07-30] MEDS: RisperDAL PO SCH ×2 (00:37→23:08)
--- NOTE | 2017-07-30 10:42 | Progress Note ---
Subjective - Reason for Consult Consult date: 07/30/17 Reason for consult: Psychiatry Follow-up - Chief Complaint Chief complaint: "My mom is Dinah" Patient is a 32-year-old male who presents the emergency department with disorganized. Today patient is calm during the assessment. He was able to tell me his mothers name "Dinah." Per the staff, no behavioral disturbance overnight. Per collateral information from his mother Dinah Griggs, she stated that her son was experiencing bizarre behavior prior to his admission to [facility], so she contacted EMS. She stated that her son is seen by Roberto Medel for outpatient psy services. She stated that her son can return home once discharged. No gestures of SI/HI's. Mental Status Exam - Vital signs Last Vital Signs Temp 98.2 F 07/30/17 10:12 Pulse 80 07/30/17 10:12 Resp 20 07/30/17 10:15 BP 134/66 07/30/17 10:12 Pulse Ox 100 07/30/17 10:15 - Exam Narrative exam: MSE: Appearance: calm Behavior: regular eye contact Speech: regular rate and tone Mood: unable to assess Affect: flat Thought Process: unable to assess Thought Content: no gestures of SI/HI's and AVH's Motor Activity: ambulatory Cognition: A/O x1 Insight: unable to assess Judgment: unable to assess Assessment and Plan Impression: Development Delay/Bipolar Disorder. Today patient is calm during the assessment. Recommendation/Plan: Evaluate 1013 in 24 hours to determine proper dispo. Continue current medication regimen. Per his mother Ms Dinah Griggs, the patient can follow-up with Roberto Medel for outpatient psy services once discharged.
[2017-07-30] MEDS ORDERED: VALIUM IM ONE (11:10)
[2017-07-30] MEDS: REMERON PO SCH (23:08)
[2017-07-31] MEDS ORDERED: KEPPRA 1,000 MG in NACL 0.9% 100 ML IV ONE ×2 (14:30→16:00)
[2017-07-31] MEDS ORDERED: KEPPRA 1,000 MG/NS 0.75% 100ML 1,000 MG/100 ML BAG IV ONE (14:43)
[2017-07-31] MEDS: RisperDAL PO SCH (21:41)
[2017-07-31] MEDS: BENADRYL PO PRN (21:44)
[2017-07-31] MEDS: KEPPRA PO SCH (21:45)
[2017-07-31] MEDS: REMERON PO SCH (21:46)
--- NOTE | 2017-07-31 22:13 | Progress Note ---
Subjective - Reason for Consult Reason for consult: recent aggression and disorganized behaviors Mental Status Exam - Vital signs Last Vital Signs Temp 98.5 F 07/31/17 09:41 Pulse 109 H 07/31/17 14:48 Resp 18 07/31/17 14:48 BP 119/69 07/31/17 14:48 Pulse Ox 97 07/31/17 14:48 Assessment and Plan More organized today. Pt had an epileptic episode and was loaded with IV Keppra. Now on Keppra 1000mg bid. General Appearance: In hospital gown, fairly groomed, fair hygeine Sensorium/Consciousness: alert and responding to external stimuli; clear Orientation:person, situation Eye Contact: Fair Attitude / Behavior: cooperative Psychomotor & Musculoskeletal Activity: No abnormalities noted Mood: fine Affect: constricted, limited range Speech / Language: fluent, with normal rate/rhythm/tone Thought Processes: more organized Thought Content: no SI/HI Perception: no AVH Insight: limited Judgement: limitied Capacity for ADLs: independent Assessment: Development Delay Bipolar Disorder Epilepsy Plan: Continue Keppra, Risperidone 1 mg po qhs, Remeron 15 mg po qhs Appear more at baseline, but due to recent epileptic episode observe 24 hours before rescinding 1013
[2017-08-01] MEDS: KEPPRA PO SCH ×2 (10:30→22:03)
--- NOTE | 2017-08-01 11:12 | Progress Note ---
Subjective - Reason for Consult Consult date: 08/01/17 Reason for consult: Psychiatry Follow-up - Chief Complaint Chief complaint: "Taran" Patient is a 32-year-old male who presents the emergency department with disorganized. Today patient is calm during the assessment. He stated that he want to go home. Per the staff, no behavioral disturbance or seizure activity overnight. He denies SI/HI's. No indications of side effect of his medications. Mental Status Exam - Vital signs Last Vital Signs Temp 99.0 F 07/31/17 22:00 Pulse 96 H 07/31/17 22:00 Resp 18 07/31/17 22:00 BP 121/72 07/31/17 22:00 Pulse Ox 100 07/31/17 22:00 - Exam Narrative exam: MSE: Appearance: calm Behavior: regular eye contact Speech: regular rate and tone Mood: "okay" Affect: flat Thought Process: more organized Thought Content: denies SI/HI's and AVH's Motor Activity: ambulatory Cognition: A/O x1 Insight: limited Judgment: limited Assessment and Plan Impression: Development Delay/Bipolar Disorder/Epilepsy. Today patient is calm during the assessment. Recommendation/Plan: Rescind 1013. Patient do not need any prescriptions once discharged per his mother Ms Dinah Griggs. Per his mother, the patient can follow-up with [facility] Medel for outpatient psy services once discharged.
[2017-08-01] MEDS: BENADRYL PO PRN (21:59)
[2017-08-01] MEDS: RisperDAL PO SCH (22:01)
[2017-08-01] MEDS: REMERON PO SCH (22:02)
[2017-08-01 22:57] VITALS: BP 126/81
== END 2017-08-01 11:40 ==
LOC: ED 07:10 → EEVIPCON 07:10 → ED 08-01 11:40
DX: F29 Unspecified psychosis not due to a substance or known physiological condition (principal); I10 Essential (primary) hypertension; F20.9 Schizophrenia, unspecified; R56.9 Unspecified convulsions; Z88.8 Allergy status to other drugs, medicaments and biological substances; F17.200 Nicotine dependence, unspecified, uncomplicated
CPT/HCPCS: 36415; 70450; 80048; 80307; 80320; 81001; 85025; 96365; 96372; G0480; J1953; J3360